=== PATIENT | female | born 1950 | race Caucasian/White ===

== ENCOUNTER 2019-05-30 12:43 | Emergency (ER) | payer BC ==
--- NOTE | 2019-05-30 13:00 | PDOC ---
History of Present Illness - General Chief Complaint: Urinary Problem Stated Complaint: URINARY SX Time Seen by Provider: 05/30/19 13:00 History Source: Patient Exam Limitations: No Limitations - History of Present Illness Initial Comments: 68 year old female with PMH HTN, HLD, CAD [place] s/p stent, nephrolithiasis requiring lithotripsy, depression, UTI presented to ED for dysuria x1.5 weeks. She reported increased urinary frequency, urgency. She denied abdominal pain, flank pain, lightheadedness, chest pain, shortness of breath, blood in urine. ROS General: denied fever, chills, generalized weakness. HEENT: denied sore throat, rhinorrhea, ear pain. Cardiovascular: denied chest pain, palpitations, syncope, diaphoresis. Respiratory: denied shortness of breath, cough, sputum production, hemoptysis. Gastrointestinal: denied abdominal pain, nausea, vomiting, diarrhea, constipation, blood in stool. Genitourinary: admitted to dysuria, increased urinary frequency. denied hematuria, urinary incontinence, flank pain. Back: denied back pain. Musculoskeletal: denied joint pain, muscle pain, joint swelling. Neurological: denied headache, dizziness, numbness, tingling, weakness. Integumentary: denied rash, laceration, abrasion. Hematologic/Lymphatic: denied bruising or bleeding. PE Constitutional: Well-nourished, Well-developed, appearing stated age. HEENT: head is normocephalic, atraumatic. EOMI. PERRLA. no posterior pharyngeal erythema. Neck: supple. Full ROM. Cardiovascular: regular heart rhythm. no murmurs. no pericardial friction rub. Respiratory: clear to auscultation bilaterally. no crackles, rhonchi or wheezing. no stridor. Gastrointestinal: soft, nontender. normal bowel sounds. no rebound, guarding, masses. Back: negative CVA tenderness bilaterally. Extremities: peripheral pulses intact. no lower extremity edema. Neurological: CN 2-12 grossly intact. moves all four extremities. Psych: awake, alert, oriented x3. follows commands. answers questions appropriately. Past History - Past Medical History Allergies/Adverse Reactions: Allergies Allergy/AdvReac Type Severity Reaction Status Date / Time No Known Allergies Allergy Unverified 05/23/12 22:47 Home Medications: Ambulatory Orders Aspirin Coated [Ecotrin -] 325 mg PO DAILY 11/08/13 Atenolol [Tenormin -] 12.5 mg PO HS 05/14/13 Atorvastatin Ca [Lipitor] 80 mg PO HS 05/14/13 Lisinopril [Prinivil -] 2.5 mg PO DAILY 05/14/13 Mesalamine [Lialda] 4 each PO BID 05/14/13 Venlafaxine HCl [Effexor -] 150 mg PO HS 05/14/13 - Psycho Social/Smoking Cessation Hx Smoking Status: No Smoking History: Former smoker Number of Cigarettes Smoked Daily: 10 If you are a former smoker, when did you quit?: 1 YR Medical Decision Making - Medical Decision Making 68 year old female with above PMH presented to ED for dysuria/increased urinary frequency x1.5 weeks. Initial Vital Signs Temp Pulse Resp BP Pulse Ox 97.8 F 88 16 168/70 96 05/30/19 12:43 05/30/19 12:43 05/30/19 12:43 05/30/19 12:43 05/30/19 12:43 Afebrile. No tachycardia. No tachypnea. Hypertensive. No hypoxia on room air. Labs ordered: UA/UC Imaging ordered: none Medications ordered: none 05/30/19 13:54 Urine Test Results Urine Color Yellow 05/30/19 13:09 Urine Appearance Cloudy 05/30/19 13:09 Urine pH 5.5 (4.5-8) 05/30/19 13:09 Urine Protein 2+ (NEGATIVE) H 05/30/19 13:09 Urine Glucose (UA) Negative (NEGATIVE) 05/30/19 13:09 Urine Ketones Trace (NEGATIVE) 05/30/19 13:09 Urine Blood 2+ (NEGATIVE) H 05/30/19 13:09 Urine Nitrite Negative (NEGATIVE) 05/30/19 13:09 Urine Bilirubin Negative (NEGATIVE) 05/30/19 13:09 Ur Leukocyte Esterase 2+ (NEGATIVE) 05/30/19 13:09 Urine RBC 10-20 /hpf (0-4) 05/30/19 13:09 Urine WBC 60-80 (NEGATIVE) 05/30/19 13:09 Urine Bacteria Few /hpf (NEGATIVE) 05/30/19 13:09 WBC 60-80 Few bacteria. Medications ordered: Keflex 500 mg PO once, pyridium 200 mg PO once Pt informed of results, agreed with plan for care - DC with outpt PCP/urology F/ U. Discharge - Discharge Information Problems reviewed: Yes Clinical Impression/Diagnosis: UTI (urinary tract infection) Condition: Stable Disposition: HOME - Admission No - Follow up/Referral - Patient Discharge Instructions Patient Printed Discharge Instructions: DI for Urinary Tract Infection (UTI) Additional Instructions: Follow up with your primary care doctor and urologist within 5 days. Your care is not completed until you follow up. I have sent a prescription to pharmacy for an antibiotic, take as advised on label. Do not stop early even if you feel better. Take pyridium for discomfort. Take Tylenol over the counter for pain. Take as advised on label. Drink lots of fluids to stay hydrated and flush out your urinary system. Return to the Emergency Department for fever, vomiting, lightheadedness, chest pain, shortness of breath, abdominal pain, back pain, flank pain or any other new, worsening or concerning symptoms. - Post Discharge Activity
[2019-05-30 13:15] VITALS: BP 168/70; PULSE 88; TEMP 97.8; BMI 21.2
--- NOTE | 2019-05-30 13:29 | PDOC ---
Attending Attestation - Resident Resident Name: HimanshuLucía - ED Attending Attestation I have performed the following: I have examined & evaluated the patient, The case was reviewed & discussed with the resident, I agree w/resident's findings & plan, Exceptions are as noted - HPI HPI: 05/30/19 13:29 68y F htn, hl, cad sp NH, THN, HL kidney stones, Presents with complaint of urinary hesitancy for the past week, She denies associate abdominal pain, flank pain,Fever, chills, nausea, vomiting, chest pain, shortness of breath. Patient states this feels similar to prior UTIs exam GENERAL: The patient is awake, alert, and fully oriented, Nontoxic - in no acute distress. ABDOMEN: Soft, nontender, No guarding, no rebound. No CVA tenderness ua cw UTI will start keflex will dc with pmd fu return precautions were dsicussed
[2019-05-30 13:47] LABS: EPITHELIAL CELLS FEW /hpf
[2019-05-30] MEDS ORDERED: PHENAZOPYRIDINE HCL 100 MG TABLET (FP) PO ONE (13:53)
[2019-05-30] MEDS ORDERED: CEPHALEXIN MONOHYDRATE 500 MG CAPSULE (UD) PO ONE (13:54)
[2019-05-30] MEDS ORDERED: CEPHALEXIN MONOHYDRATE 500 MG CAPSULE (UD) ONE (13:56)
[2019-05-30] MEDS ORDERED: PHENAZOPYRIDINE HCL 100 MG TABLET (FP) ONE (13:56)
== END 2019-05-30 14:10 | disposition home or self-care (01) ==
LOC: FER 12:43
DX: N39.0 Urinary tract infection, site not specified (principal); I10 Essential (primary) hypertension; I25.10 Atherosclerotic heart disease of native coronary artery without angina pectoris; I25.2 Old myocardial infarction; E78.00 Pure hypercholesterolemia, unspecified; Z95.5 Presence of coronary angioplasty implant and graft; Z79.82 Long term (current) use of aspirin; Z87.891 Personal history of nicotine dependence
CPT/HCPCS: 81003; 81015; 87086; 87186; 99282-25

== ENCOUNTER 2023-12-10 15:39 | Inpatient (IN) | payer OTHER, BC ==
[2023-12-10] MEDS: SODIUM CHLORIDE 0.9% 500 ML INFUS.BAG IV ONE ×2 (16:40→18:48)
[2023-12-10 17:14] LABS: HEMATOCRIT 42.9 % (32.4-45.2); HEMOGLOBIN 14.9 GM/dL (10.7-15.3); MCH 28.5 pg (25.7-33.7); MCHC 34.8 g/dl (32.0-36.0); MEAN CELL VOLUME 81.8 fl (80-96); MEAN PLT VOLUME 8.4 fl (7.5-11.1); PLATELET COUNT 230 10^3/uL (134-434); RBC 5.25 M/mm3 (3.60-5.2); RDW 14.2 % (11.6-15.6); WHITE BLOOD COUNT 15.1 K/mm3 (4.0-10.0)
[2023-12-10 17:32] LABS: POTASSIUM 3.4 mmol/L (3.5-5.1)
[2023-12-10 17:34] LABS: ALBUMIN 3.6 g/dl (3.4-5.0); CALCIUM 10.5 mg/dL (8.5-10.1)
[2023-12-10 17:35] LABS: BLOOD UREA NITROGEN 30.8 mg/dL (7-18); MAGNESIUM 2.3 mg/dL (1.8-2.4)
[2023-12-10 17:38] LABS: CREATININE 1.5 mg/dL (0.55-1.3)
[2023-12-10 17:40] LABS: BILIRUBIN,TOTAL 0.7 mg/dL (0.2-1); TOT PROT 6.6 g/dl (6.4-8.2)
[2023-12-10 17:42] LABS: ANISOCYTOSIS 1+; MACROCYTOSIS 0; OVALOCYTE 1+
[2023-12-10] MEDS: D5-1/2NS+20 MEQ KCL - 20 MEQ/1,000 ML INFUS.BAG IV SCH (20:07)
[2023-12-10] MEDS: HEPARIN NA (PORCINE) 5,000 UNITS/ML 1ML VIAL SQ SCH (22:11)
[2023-12-11 08:16] LABS: BASO % 0.5 % (0-2.0); EOS % 9.4 % (0-4.5); HEMATOCRIT 37.5 % (32.4-45.2); HEMOGLOBIN 13.2 GM/dL (10.7-15.3); LYMPH % 13.4 % (8-40); MCH 28.9 pg (25.7-33.7); MCHC 35.2 g/dl (32.0-36.0); MEAN CELL VOLUME 82.3 fl (80-96); MEAN PLT VOLUME 8.5 fl (7.5-11.1); MONO % 11.3 % (3.8-10.2); NEUT % 65.4 % (42.8-82.8); PLATELET COUNT 206 10^3/uL (134-434); RBC 4.56 M/mm3 (3.60-5.2); RDW 13.9 % (11.6-15.6); WHITE BLOOD COUNT 10.2 K/mm3 (4.0-10.0)
[2023-12-11 08:17] LABS: PH,URINE 5.5 (5.0-8.0); URINE APPEARANCE CLEAR; URINE BILIRUBIN NEGATIVE (NEGATIVE); URINE COLOR YELLOW; URINE GLUCOSE (UA) NEGATIVE (NEGATIVE); URINE KETONE TRACE (NEGATIVE); URINE LEUK ESTERASE 1+ (NEGATIVE); URINE NITRITE NEGATIVE (NEGATIVE); URINE PROTEIN NEGATIVE (NEGATIVE); URINE UROBILINOGEN 0.2 mg/dL (0.2-1.0)
[2023-12-11 08:30] LABS: EPI CELLS 13.7 /uL (0-25.1); HYALINE CASTS 0.43 /uL (0-3.1); URINE BACTERIA 32.2 /uL (0-1359); URINE WBC 37.2 /uL (0-25.8)
[2023-12-11 08:37] LABS: ALBUMIN 3.2 g/dl (3.4-5.0); CALCIUM 9.2 mg/dL (8.5-10.1); CO2 26 mmol/L (21-32); GLUCOSE,RANDOM 133 mg/dL (74-106)
[2023-12-11 08:40] LABS: CREATININE 1.2 mg/dL (0.55-1.3); PHOSPHOROUS 2.8 mg/dL (2.5-4.9); SGOT/AST 22 U/L (15-37); SGPT/ALT 32 U/L (13-61)
[2023-12-11 08:42] LABS: BILIRUBIN,TOTAL 0.7 mg/dL (0.2-1); TOT PROT 5.9 g/dl (6.4-8.2)
[2023-12-11 08:43] LABS: ALK PHOS 78 U/L (45-117)
[2023-12-11 08:53] LABS: CHLORIDE 99 mmol/L (98-107); SODIUM 135 mmol/L (136-145)
[2023-12-11 08:54] LABS: ANION GAP 10 mmol/L (4-13); POTASSIUM 2.7 mmol/L (3.5-5.1)
[2023-12-11] MEDS ORDERED: POTASSIUM CHLORIDE ORAL LIQUID 20 MEQ/15 ML PO SCH (10:00)
[2023-12-11] MEDS: VENLAFAXINE HCL 75 MG E.R. CAPSULES PO SCH (10:03)
[2023-12-11] MEDS: MEMANTINE HCL 5 MG TABLET (UD) PO SCH (10:03)
[2023-12-11] MEDS: POTASSIUM CHLORIDE ORAL LIQUID 20 MEQ/15 ML PO SCH (10:03)
[2023-12-11] MEDS: LORazepam 2 MG/ML SDV VIAL IVPUSH ONE ×2 (10:03→13:59)
[2023-12-11] MEDS: KCL 10 MEQ IVPB 10 MEQ/100 ML INFUS.BAG IVPB SCH (10:04)
[2023-12-11] MEDS: CEFTRIAXONE 1 GM in DEXTROSE 5%-WATER - 50 ML IVPB ONE (11:14)
[2023-12-11] MEDS: EZETIMIBE 10 MG TABLET (FP) PO SCH (12:22)
[2023-12-11] MEDS ORDERED: LORazepam 2 MG/ML SDV VIAL IVPUSH PRN (15:25)
[2023-12-11 17:00] LABS: POTASSIUM 4.4 mmol/L (3.5-5.1)
[2023-12-11 17:01] LABS: CALCIUM 9.3 mg/dL (8.5-10.1)
[2023-12-11 17:02] LABS: BLOOD UREA NITROGEN 25.6 mg/dL (7-18); MAGNESIUM 2.3 mg/dL (1.8-2.4)
[2023-12-11 17:05] LABS: CREATININE 1.2 mg/dL (0.55-1.3)
[2023-12-11] MEDS: MELATONIN 1 MG TABLET PO SCH (21:53)
[2023-12-11] MEDS: ATORVASTATIN CA 40 MG TABLET (FP) PO SCH (21:53)
[2023-12-11] MEDS: DONEPEZIL HCL 10 MG TABLET (FP) PO SCH (21:53)
[2023-12-12 08:40] LABS: EOS % 11.8 % (0-4.5); HEMATOCRIT 39.4 % (32.4-45.2); HEMOGLOBIN 13.6 GM/dL (10.7-15.3); LYMPH % 16.4 % (8-40); MCH 29.1 pg (25.7-33.7); MCHC 34.6 g/dl (32.0-36.0); MEAN PLT VOLUME 8.1 fl (7.5-11.1); MONO % 12.2 % (3.8-10.2); NEUT % 58.6 % (42.8-82.8); PLATELET COUNT 247 10^3/uL (134-434); RBC 4.68 M/mm3 (3.60-5.2); RDW 14.2 % (11.6-15.6); WHITE BLOOD COUNT 9.3 K/mm3 (4.0-10.0)
[2023-12-12 09:24] LABS: POTASSIUM 4.1 mmol/L (3.5-5.1)
[2023-12-12 09:27] LABS: CALCIUM 9.7 mg/dL (8.5-10.1)
[2023-12-12 09:28] LABS: BLOOD UREA NITROGEN 22.1 mg/dL (7-18)
[2023-12-12 09:31] LABS: CREATININE 1.1 mg/dL (0.55-1.3)
[2023-12-12 10:26] LABS: ANISOCYTOSIS 0; MACROCYTOSIS 0
[2023-12-12] MEDS: CEFTRIAXONE 1 GM in DEXTROSE 5%-WATER - 50 ML IVPB SCH (10:30)
[2023-12-12 11:35] VITALS: BMI 22.6
[2023-12-12 12:37] VITALS: BP 114/73; PULSE 87; RESP 18; TEMP 98.6
[2023-12-13] MEDS ORDERED: MULTIVITAMINS THER W-MINERALS COMBO TABLET (FP) PO SCH (10:00)
== END 2023-12-12 16:38 | disposition home or self-care (01) | DRG 641 ==
LOC: JER 15:39 → JERBED 18:00 → J7W 20:36
PROVIDERS: ADMIT Internal Medicine; ATTEND Internal Medicine
DX: E86.0 Dehydration (principal); N39.0 Urinary tract infection, site not specified; I48.91 Unspecified atrial fibrillation; E78.5 Hyperlipidemia, unspecified; J84.10 Pulmonary fibrosis, unspecified; F03.90 Unspecified dementia, unspecified severity, without behavioral disturbance, psychotic disturbance, mood disturbance, and anxiety; E87.6 Hypokalemia; T37.8X5A Adverse effect of other specified systemic anti-infectives and antiparasitics, initial encounter; I25.10 Atherosclerotic heart disease of native coronary artery without angina pectoris; I10 Essential (primary) hypertension; Z95.1 Presence of aortocoronary bypass graft; R91.8 Other nonspecific abnormal finding of lung field; R19.7 Diarrhea, unspecified; R53.1 Weakness; E83.52 Hypercalcemia; E87.1 Hypo-osmolality and hyponatremia; F41.8 Other specified anxiety disorders
CPT/HCPCS: 0241U-QW; 36415; 71045-TC-FY; 74176-TC; 80048; 80053; 81003; 83735; 84100; 84443; 84484; 85025; 87040; 87086; 93005; 93010; 93970-TC; 97116-GP; 97162-GP; 99285-25; J1644